=== PATIENT | female | born 1965 | race Two or more races ===

== ENCOUNTER 2019-11-14 08:42 | Emergency (ER) | payer OTHER ==
[~2019-11-14] VITALS: Ht 157.5 cm; Wt 68.0 kg
[2019-11-14] MEDS ORDERED: GLIPIZIDE XL10 MG (09:11)
[2019-11-14] MEDS ORDERED: FORTAMET1000 MG (09:11)
[2019-11-14] MEDS ORDERED: LISINOPRIL10 MG (09:11)
== END 2019-11-14 15:50 | disposition home or self-care (01) ==
LOC: ER 08:42
DX: K52.89 Other specified noninfective gastroenteritis and colitis (principal); Z20.828 Contact with and (suspected) exposure to other viral communicable diseases

== ENCOUNTER 2021-01-20 09:12 | Emergency (ER) | payer OTHER ==
[~2021-01-20] VITALS: Ht 157.5 cm; Wt 66.7 kg
[~2021-01-20 09:12] MED LIST: FORTAMET1000 MG; GLIPIZIDE XL10 MG; LISINOPRIL10 MG
== END 2021-01-20 10:55 | disposition home or self-care (01) ==
LOC: ER 09:12
DX: R53.81 Other malaise (principal); R50.9 Fever, unspecified; R05.9 Cough, unspecified

== ENCOUNTER 2022-04-29 18:00 | Emergency (ER) | payer OTHER ==
[~2022-04-29] VITALS: Ht 157.5 cm; Wt 64.9 kg
== END 2022-04-29 22:48 | disposition home or self-care (01) ==
LOC: ER 18:00
DX: N23 Unspecified renal colic (principal); E11.9 Type 2 diabetes mellitus without complications; Z79.84 Long term (current) use of oral hypoglycemic drugs; M54.9 Dorsalgia, unspecified; I10 Essential (primary) hypertension; Z88.6 Allergy status to analgesic agent